=== PATIENT | male | born 1980 | race Caucasian/White ===

== ENCOUNTER → 2017-11-08 | Outpatient (CLI) | payer OTHER ==
[~2017-11-08] MED LIST: ALEVE220 MG PO; BACTRIM DS TAB1 EACH PO; HYDROCODONE-AP1 EAC6 PO; IBUPROFEN 600600 M1 PO; LEVAQUIN 750 M750 MG PO; UNICOMPLEX M TA1 TA1 PO
== END ==
LOC: RAD 09:24
DX: M79.642 Pain in left hand (principal)

== ENCOUNTER 2018-07-27 11:07 | Emergency (ER) | payer OTHER ==
[~2018-07-27] VITALS: Ht 190.5 cm; Wt 91.6 kg
[2018-07-27] MEDS ORDERED: ULTRAM 50MG TAB50 MG PO (11:20)
[2018-07-27 11:38] LABS: URINE CLARITY CLEAR; URINE COLOR YELLOW
[2018-07-27 11:39] LABS: URINE BILIRUBIN NEGATIVE (Negative); URINE BLOOD NEGATIVE (Negative); URINE GLUCOSE-RANDOM* NEGATIVE (Negative); URINE KETONES NEGATIVE (Negative); URINE LEUKOCYTES-REFLEX NEGATIVE (Negative); URINE NITRITE-REFLEX NEGATIVE (Negative); URINE PROTEIN (DIPSTICK) NEGATIVE (Negative); URINE SPECIFIC GRAVITY 1.015 (1.005-1.035); URINE UROBILINOGEN 0.2 E.U./dl (0.2-1.0)
[2018-07-27 11:43] LABS: ABSOLUTE NEUTROPHILS 9.2 thou/uL (1.4-8.2); BASOPHILS 0.4 % (0.0-2.0); EOSINOPHILS 2.7 % (0.0-3.0); HEMATOCRIT 50.7 % (42.0-52.0); HEMOGLOBIN 17.2 gm/dL (14.0-18.0); LYMPHOCYTES 12.6 % (24.0-44.0); MCH 30.6 pg (26.0-34.0); MCHC 33.9 g/dL (28.0-37.0); MCV 90.1 fL (80.0-100.0); MONOCYTES 5.3 % (1.0-8.0); PLATELET COUNT 297 thou/uL (150-400); RBC 5.63 mil/uL (4.50-6.00); RDW 12.7 % (10.5-14.5); WBC 11.6 thou/uL (4.0-11.0)
[2018-07-27 11:51] LABS: CALCIUM 9.3 mg/dL (8.5-10.1); CREATININE 0.9 mg/dL (0.7-1.3)
[2018-07-27 11:58] LABS: ALBUMIN 4.1 g/dL (3.4-5.0); TOTAL BILIRUBIN 0.5 mg/dL (<0.1-1.0); TOTAL PROTEIN 7.9 g/dL (6.4-8.2)
[2018-07-27] MEDS ORDERED: ONDANSETRON HCL4 M2 PO (13:03)
[2018-07-27 13:17] VITALS: BP 146/97
== END 2018-07-27 13:23 | disposition home or self-care (01) ==
LOC: ER 11:07
PROVIDERS: Physician Assistant
DX: R10.33 Periumbilical pain (principal); R11.2 Nausea with vomiting, unspecified; R19.7 Diarrhea, unspecified; K21.9 Gastro-esophageal reflux disease without esophagitis; F17.210 Nicotine dependence, cigarettes, uncomplicated; Z88.0 Allergy status to penicillin

== ENCOUNTER 2018-07-28 09:35 | Inpatient (IN) | payer OTHER ==
[~2018-07-28] VITALS: Ht 190.5 cm; Wt 91.2 kg
[~2018-07-28 09:35] MED LIST changes: +ONDANSETRON HCL4 M2 PO; +ULTRAM 50MG TAB50 MG PO
[2018-07-28 09:55] VITALS: BP 128/94
[2018-07-28 10:22] LABS: ABSOLUTE NEUTROPHILS 10.5 thou/uL (1.4-8.2); BASOPHILS 0.2 % (0.0-2.0); EOSINOPHILS 1.5 % (0.0-3.0); HEMATOCRIT 52.8 % (42.0-52.0); HEMOGLOBIN 17.9 gm/dL (14.0-18.0); LYMPHOCYTES 10.2 % (24.0-44.0); MCH 30.7 pg (26.0-34.0); MCV 90.5 fL (80.0-100.0); PLATELET COUNT 297 thou/uL (150-400); POLYS 83.1 % (36.0-66.0); RBC 5.84 mil/uL (4.50-6.00); RDW 12.7 % (10.5-14.5); WBC 12.6 thou/uL (4.0-11.0)
[2018-07-28 10:33] LABS: URINE BILIRUBIN NEGATIVE (Negative); URINE BLOOD NEGATIVE (Negative); URINE CLARITY CLEAR; URINE COLOR YELLOW; URINE GLUCOSE-RANDOM* NEGATIVE (Negative); URINE KETONES NEGATIVE (Negative); URINE LEUKOCYTES-REFLEX NEGATIVE (Negative); URINE NITRITE-REFLEX NEGATIVE (Negative); URINE PROTEIN (DIPSTICK) NEGATIVE (Negative); URINE UROBILINOGEN 0.2 E.U./dl (0.2-1.0)
[2018-07-28 10:36] LABS: CALCIUM 9.3 mg/dL (8.5-10.1); POTASSIUM 4.1 mmol/L (3.5-5.1)
[2018-07-28 10:40] LABS: ALBUMIN 3.9 g/dL (3.4-5.0); TOTAL BILIRUBIN 0.3 mg/dL (<0.1-1.0); TOTAL PROTEIN 7.6 g/dL (6.4-8.2)
[2018-07-28 10:41] LABS: AMP/METHAMP POSITIVE (Negative); BARBITURATES Negative (Negative); BENZODIAZEPINES Negative (Negative); COCAINE Negative (Negative); METHADONE Negative (Negative); OPIATES Negative (Negative); PCP Negative (Negative)
[2018-07-28 11:51] VITALS: BP 137/103
[2018-07-28 12:23] VITALS: BP 136/93
[2018-07-28 12:35] VITALS: BP 116/64
--- NOTE | 2018-07-28 16:45 | NUR ---
PT ARRIVED ON UNIT FROM ED AT 1330. PT ALERT BUT VERY DROWSY AND LETHARGIC. HE WILL RESPOND APPROPITATELY. NO CONCERNS OR ISSUES AT THIS TIME. WILL CONTINUE TO MONTIOR PT OR N/V WHICH HE HAS HAD NO EPISODES SINCE ARRIVING ON THE UNIT
[2018-07-28 20:20] VITALS: BP 113/84
[2018-07-29 04:09] VITALS: BP 125/76
--- NOTE | 2018-07-29 04:52 | NUR ---
denies pain, nausea. voiding well, uses toilet to urinate. calm, cooperative. able to answer questions appropriately. alert, oriented x 4. slept thru night, responded easily to verbal stimuli. sinus tachycardia - heart rate between 90's -110s with occasional elevation to 120-130 at beginning of shift.
[2018-07-29 05:54] LABS: HEMATOCRIT 48.6 % (42.0-52.0); MCH 31.3 pg (26.0-34.0); MCHC 35.1 g/dL (28.0-37.0); MCV 89.4 fL (80.0-100.0); RBC 5.44 mil/uL (4.50-6.00); RDW 12.9 % (10.5-14.5); WBC 5.6 thou/uL (4.0-11.0)
[2018-07-29 05:58] LABS: CALCIUM 8.5 mg/dL (8.5-10.1); CREATININE 1.1 mg/dL (0.7-1.3); POTASSIUM 4.6 mmol/L (3.5-5.1)
[2018-07-29 08:00] VITALS: BP 132/76
[2018-07-29 15:00] VITALS: BP 138/84
--- NOTE | 2018-07-29 18:28 | NUR ---
PT STABLE THROUGHOUT SHIFT WITH THE EXCEPTION OF SINUS TACH THROUGHOUT DAY. TACHYCARDIA RANGED FROM 110'S -150'S. PHYSICIAN STARTED PT ON CARVEDILOL WHICH APPEARS TO HAVE NORMALIZED RATE IN 80'S. PT RESTING COMFORTABLY.
[2018-07-29 18:56] VITALS: BP 131/80
[2018-07-30 03:01] VITALS: BP 136/86
[2018-07-30 07:05] VITALS: BP 139/75
--- NOTE | 2018-07-30 08:32 | EKG ---
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 : 1980 Requested By: Mohamud Medina Order Number: [id number] MD: Que Mejias Measurements Intervals [place] Rate: 118 P: 60 OR: 123 QRS: 57 QRSD: 87 T: 17 QT: 315 QTc: 442 Interpretive Statements Sinus tachycardia Poor R wave progression Compared to ECG 11/04/2005 07:19:07 T-wave abnormality now present Electronically Signed On 07-30-2018 8:31:57 MANAGER RECRUITMENT by Que Mejias [email or web address] <ELECTRONICALLY SIGNED> By: Que Mejias MD, [facility] 07/30/18 0831 [id number] Que Mejias MD, [facility] /EPI
--- NOTE | 2018-07-30 09:33 | 2DMMODE ---
[facility] [address] [place] [address] 2 D/M-MODE ECHOCARDIOGRAM Name: JONATHAN LYNN Room #: 450-P ADM IN ..#: [id number] Admission: 07/28/18 Attend Phys: Mohamud Medina MD Discharge: Date of : 76 Date of Service: 07/30/18 0933 Report #: [id number] THIS REPORT FOR: //name// APPROVED REPORT Study performed: 07/30/2018 08:22:37 EXAM: Comprehensive 2D, Doppler, and color-flow Echocardiogram Patient Location: Echo lab Room #: [facility] Status: routine BSA: 2.18 HR: 75 bpm BP: 136/86 mmHg Rhythm: NSR/IRREGULAR Other Information Study Quality: Good Indications Tachycardia. Hx: Tobacco and drug abuse. 2D Dimensions RVDd: 40.66 mm IVSd: 9.82 (7-11mm) LVOT Diam: 22.57 (18-24mm) LVDd: 49.20 mm PWd: 10.56 (7-11mm) Ascending Ao: 33.62 (22-36mm) LVDs: 35.15 (25-40mm) Aortic Root: 34.14 mm Volumes Left Atrial Volume (Systole) Single Plane 4CH: 30.87 mL Single Plane 2CH: 28.03 mL LA ESV Index: 16.00 mL/m2 Aortic Valve AoV Peak Zack.: 1.28 m/s AO Peak Gr.: 6.56 mmHg LVOT Max P.08 mmHg LVOT Max V: 0.88 m/s TATY Vmax: 2.74 cm2 Mitral Valve E/A Ratio: 1.8 MV Decel. Time: 271.25 ms MV E Max Zack.: 0.72 m/s [facility] [address] [place] [address] 2 D/M-MODE ECHOCARDIOGRAM Name: JONATHAN LYNN Room #: 450-[facility] IN ..#: [id number] Admission: 07/28/18 Attend Phys: Mohamud Medina MD Discharge: Date of : 76 Date of Service: 07/30/18 0933 Report #: [id number] MV A Zack.: 0.41 m/s MV PHT: 78.66 ms IVRT: 78.43 ms Pulmonary Valve PV Peak Zack.: 1.05 m/s PV Peak Gr.: 4.37 mmHg Pulmonary Vein P Vein S: 0.43 m/s P Vein A: 0.35 m/s P Vein D: 0.52 m/s P Vein A Dur.: 87.7 msec P Vein S/D Ratio: 0.83 Tricuspid Valve TR Peak Zack.: 2.48 m/s RAP Estimate: 5.00 mmHg TR Peak Gr.: 24.55 mmHg PA Pressure: 30.00 mmHg Left Ventricle The left ventricle is normal size. There is normal left ventricular wall thickness. Left ventricular systolic function is normal. LVEF is 55%. The left ventricular diastolic function is normal. Right Ventricle The right ventricle is normal size. The right ventricular systolic function is normal. Atria The left atrium size is normal. The right atrium size is normal. Aortic Valve The aortic valve is normal in structure. No aortic regurgitation is present. There is no aortic valvular stenosis. Mitral Valve The mitral valve is normal in structure. There is no mitral valve regurgitation noted. No evidence of mitral valve stenosis. Tricuspid Valve The tricuspid valve is normal in structure. Mild tricuspid regurgitation. Estimated PAP is 30mmHg. Pulmonic Valve The pulmonary valve is normal in structure. Trace pulmonic regurgitation. [address] [address] 2 D/M-MODE ECHOCARDIOGRAM Name: LYNNJONATHAN STEVE Room #: 450-P [facility] IN [facility]#: [id number] Admission: 07/28/18 Attend Phys: Mohamud Medina MD Discharge: Date of : 76 Date of Service: 07/30/18 0933 Report #: [id number] Great Vessels The aortic root is normal in size. The ascending aorta is normal in size. IVC is normal in size and collapses >50% with inspiration. Pericardium There is no pericardial effusion. <Conclusion> 1. Normal echocardiogram with Doppler. EF 55% 2. Pulmonary artery pressure of 30mmHg 3. No pericardial effusion <ELECTRONICALLY SIGNED> By: Que Mejias MD, FACC 07/30/18932 2 2 Que Mejias MD, FAC /INF
[2018-07-30] MEDS ORDERED: FLAGYL500 M1 PO (10:35)
[2018-07-30] MEDS ORDERED: LOPRESSOR25 PO (10:35)
[2018-07-30] MEDS ORDERED: CIPRO500 MG PO (10:35)
[2018-07-30 11:02] VITALS: BP 139/75
== END 2018-07-30 11:15 | disposition home or self-care (01) | DRG 871 ==
LOC: ER 09:35 → 4W 11:06 → EROBS 11:06 → 4W 12:19
PROVIDERS: Physician Assistant; ADMIT Hospitalist
DX: A41.9 Sepsis, unspecified organism (principal); K85.90 Acute pancreatitis without necrosis or infection, unspecified; E43 Unspecified severe protein-calorie malnutrition; A04.9 Bacterial intestinal infection, unspecified; K21.9 Gastro-esophageal reflux disease without esophagitis; K31.89 Other diseases of stomach and duodenum; R11.2 Nausea with vomiting, unspecified; F12.10 Cannabis abuse, uncomplicated; R00.0 Tachycardia, unspecified; F15.10 Other stimulant abuse, uncomplicated; F17.210 Nicotine dependence, cigarettes, uncomplicated; Z79.899 Other long term (current) drug therapy; Z88.0 Allergy status to penicillin; Z71.6 Tobacco abuse counseling; Z71.51 Drug abuse counseling and surveillance of drug abuser
CPT/HCPCS: 10045

== ENCOUNTER → 2018-08-09 | Outpatient (CLI) | payer OTHER ==
[~2018-08-09] MED LIST changes: +CIPRO500 MG PO; +FLAGYL500 M1 PO; +LOPRESSOR25 PO
== END ==
LOC: ULTRA 09:45
DX: R10.11 Right upper quadrant pain (principal); J90 Pleural effusion, not elsewhere classified

== ENCOUNTER → 2018-09-23 | Outpatient (CLI) | payer OTHER | LOC: RAD 09-19 13:59 | DX: J90 Pleural effusion, not elsewhere classified (principal); R10.11 Right upper quadrant pain; R14.0 Abdominal distension (gaseous) ==

== ENCOUNTER 2019-05-24 10:01 | Emergency (ER) | payer OTHER ==
[~2019-05-24] VITALS: Ht 188 cm; Wt 88.9 kg
[2019-05-24 10:01] VITALS: BP 119/80
[2019-05-24] MEDS ORDERED: NAPROSYN500 MG PO (10:53)
[2019-05-24] MEDS ORDERED: ULTRAM 50MG TAB50 MG PO (10:53)
[2019-05-24] MEDS ORDERED: MEDROLDOSEPACK PO (10:53)
== END 2019-05-24 11:00 | disposition home or self-care (01) ==
LOC: ER 10:01
DX: G56.02 Carpal tunnel syndrome, left upper limb (principal); K21.9 Gastro-esophageal reflux disease without esophagitis; F17.210 Nicotine dependence, cigarettes, uncomplicated; Z98.890 Other specified postprocedural states; Z88.0 Allergy status to penicillin